=== PATIENT | male | born 1975 | race Caucasian/White ===

== ENCOUNTER 2016-12-26 09:55 | Day surgery (SDC) | payer OTHER ==
[~2016-12-26] VITALS: Ht 175.3 cm; Wt 83.9 kg
[2016-12-26 10:59] VITALS: O2SAT 99
[2016-12-26] MEDS ORDERED: POLYMYXIN 500,000/BACIT.10,000 UNITS in NS IRR 1 L IR ONE (12:20)
[2016-12-26] MEDS ORDERED: LR 1,000 ML IV SCH (12:30)
[2016-12-26] MEDS ORDERED: HYDROmorphone 2 MG/ML VIAL IVP PRN (12:30)
[2016-12-26] MEDS ORDERED: HYDROmorphone 1 MG INJ. 1 MG/ML AMPUL IVP PRN ×2 (12:30)
[2016-12-26] MEDS ORDERED: METOCLOPRAMIDE HCL 10 MG/2 ML VIAL IVP PRN (12:30)
[2016-12-26] MEDS ORDERED: HYDROmorphone 1 MG INJ. 1 MG/ML AMPUL ONE ×2 (13:10→13:27)
[2016-12-26] MEDS ORDERED: ceFAZolin SODIUM 1 GM VIAL ONE (14:00)
[2016-12-26] MEDS ORDERED: ONDANSETRON HCL 4 MG/2 ML VIAL ONE (14:00)
[2016-12-26] MEDS ORDERED: SEVOFLURANE 15 MIN GAS INH ONE (14:00)
[2016-12-26] MEDS ORDERED: GLYCOPYRROLATE 0.2 MG/ML VIAL ONE (14:00)
[2016-12-26] MEDS ORDERED: fentaNYL CITRATE 250 MCG/5 ML AMP ONE (14:00)
[2016-12-26] MEDS ORDERED: ROCURONIUM BROMIDE 10 MG/ML (ZEMURON) ONE (14:00)
[2016-12-26] MEDS ORDERED: PROPOFOL 200MG/ 20ML VIAL (DIPRIVAN) IV ONE (14:00)
[2016-12-26] MEDS ORDERED: KETOROLAC TROMETHAMINE 30 MG VIAL ONE (14:00)
[2016-12-26] MEDS ORDERED: NS 100 ML BAG IV ONE (14:00)
[2016-12-26] MEDS ORDERED: MIDAZOLAM HCL 5 MG/5 ML VIAL ONE (14:00)
[2016-12-26 14:03] VITALS: BP 126/68; PULSE 2; RESP 12
== END 2016-12-26 15:40 | disposition home or self-care (01) ==
LOC: SDS 09:55
PROVIDERS: ATTEND Orthopaedic Surgery
DX: S46.212D Strain of muscle, fascia and tendon of other parts of biceps, left arm, subsequent encounter (principal)
CPT/HCPCS: 24341; J0690; J1170 ×2; J1885; J2250; J2405; J2704; J2765; J3010; J3490; J7120

== ENCOUNTER 2021-04-27 19:24 | Emergency (ER) | payer BC, OTHER ==
[~2021-04-27] VITALS: Ht 175.3 cm; Wt 108.9 kg
[2021-04-27 19:30] VITALS: BP_SYST 158
[2021-04-27] MEDS ORDERED: ONDA-8 TL (20:19)
[2021-04-27] MEDS ORDERED: MECL-225 PO (20:19)
[2021-04-27 20:23] VITALS: BP_SYST 145
== END 2021-04-27 20:23 | disposition home or self-care (01) ==
LOC: SED 19:24
DX: H81.10 Benign paroxysmal vertigo, unspecified ear (principal); Z79.899 Other long term (current) drug therapy
CPT/HCPCS: 99283